=== PATIENT | male | born 1970 | race African-American/Black ===

== ENCOUNTER 2023-01-28 07:43 | Outpatient (CLI) | payer OTHER | END 2023-01-28 13:10 | disposition home or self-care (01) | LOC: LAB 07:43 | DX: A54.9 Gonococcal infection, unspecified (principal); A60.9 Anogenital herpesviral infection, unspecified; I10 Essential (primary) hypertension; E78.2 Mixed hyperlipidemia; E11.9 Type 2 diabetes mellitus without complications; N40.0 Benign prostatic hyperplasia without lower urinary tract symptoms; N30.00 Acute cystitis without hematuria ==

== ENCOUNTER 2023-11-21 03:13 | Emergency (ER) | payer OTHER ==
[~2023-11-21] VITALS: Ht 172.7 cm; Wt 86.2 kg
[2023-11-21 04:23] LABS: HEMOGLOBIN 13.4 g/dL (13-16.00); MEAN CELL VOLUME 88.2 fL (80.0-100.00); MEAN CORPUSCULAR HEMOGLOBIN 31.2 pg (27.00-32.0); MEAN CORPUSCULAR HGB CONC 35.3 g/dl (32.0-36.0); PLATELET COUNT 294 K/uL (150-450); RED CELL DISTRIBUTION WIDTH 13.5 % (11.5-14.5)
[2023-11-21 04:48] LABS: CALCIUM 8.3 mg/dL (8.5-10.1); CREATININE SERUM 0.66 mg/dL (0.70-1.30); GFR 126.74; POTASSIUM 3.48 mEq/L (3.5-5.1)
== END 2023-11-21 05:26 | disposition home or self-care (01) ==
LOC: ER 03:13
DX: K52.9 Noninfective gastroenteritis and colitis, unspecified (principal)

== ENCOUNTER 2025-02-10 10:37 | Emergency (ER) | payer OTHER ==
[~2025-02-10] VITALS: Ht 172.7 cm; Wt 86.2 kg
[2025-02-10] MEDS ORDERED: KETOROLAC TROMETHAMINE 60 MG VIAL IM ONE (11:45)
== END 2025-02-10 13:36 | disposition home or self-care (01) ==
LOC: ER 10:37
DX: S82.61XA Displaced fracture of lateral malleolus of right fibula, initial encounter for closed fracture (principal); W18.39XA Other fall on same level, initial encounter; Y93.89 Activity, other specified; Y92.89 Other specified places as the place of occurrence of the external cause; Y99.9 Unspecified external cause status